=== PATIENT | female | born 1965 | race Asian ===

== ENCOUNTER 2021-04-17 17:23 | Emergency (ER) | payer MEDICARE, MEDICAID ==
[~2021-04-17] VITALS: Ht 152.4 cm; Wt 77.8 kg
--- NOTE | 2021-04-17 17:39 | NUR ---
NO ANSWER FROM LOBBY
--- NOTE | 2021-04-17 18:19 | NUR ---
PT MOVED TO ROOM 40, ONE SUIT CASE, ONE BACK BACK AND ONE PT BELONGINGS BACK LABELLED AND PLACED WITH SITTER. UA COLLECTED.
--- NOTE | 2021-04-17 18:42 | NUR ---
Brief report received from RN rooming pt. writer technical publications at [facility] for 1:1 direct observation continuously for pt safety due to sudhakar SI.
--- NOTE | 2021-04-17 18:55 | NUR ---
Report given to oncoming shift RN and care transferred.
--- NOTE | 2021-04-17 19:14 | NUR ---
FIRST CONTACT WITH PT. HAYES. SHON AT BEDSIDE DRAWING BLOOD
[2021-04-17 19:30] LABS: BASOPHILS % (AUTO) 0 % (0-1); EOSINOPHILS % (AUTO) 0 % (1-7); LYMPHOCYTES % (AUTO) 26 % (22-44); MEAN CORPUSCULAR HEMOGLOBIN 29.2 pg (27.0-34.8); MEAN CORPUSCULAR HGB CONC 33.3 g/dL (32.4-35.8); MEAN PLATELET VOLUME 8.2 fL (7.4-10.4); MONOCYTES % (AUTO) 6 % (2-9); NEUTROPHILS % (AUTO) 68 % (42-75); PLATELET COUNT 369 x10^3/uL (130-400); RED BLOOD COUNT 4.59 x10^6/uL (3.82-5.3)
[2021-04-17 19:42] LABS: ALANINE AMINOTRANSFERASE 45 U/L (12-78); ALBUMIN 3.9 g/dL (3.4-5.0); ANION GAP 7 mmol/L (5-15); CALCIUM 9.3 mg/dL (8.5-10.1); CHLORIDE 109 mmol/L (98-107); CREATININE 0.61 mg/dL (0.55-1.02)
[2021-04-17 19:48] LABS: SALICYLATE LEVEL < 1.7 mg/dL (2.8-20.0)
[2021-04-17 19:52] LABS: ALKALINE PHOSPHATASE 99 U/L (45-117); BILIRUBIN,TOTAL 0.5 mg/dL (0.2-1.0); TOTAL PROTEIN 8.5 g/dL (6.4-8.2)
[2021-04-17 19:55] LABS: AMPHETAMINE SCREEN, URINE Negative (Negative); BARBITURATE SCREEN, URINE Negative (Negative); BENZODIAZEPINE SCREEN, URINE Negative (Negative); CANNABINOID SCREEN, URINE Negative (Negative); COCAINE SCREEN, URINE Negative (Negative); METHADONE SCREEN, URINE Negative (Negative); OPIATE SCREEN, URINE Negative (Negative)
--- NOTE | 2021-04-17 19:57 | NUR ---
PT PACING BACK AND FORTH IN ROOM AND REPORTS ANXIETY. NOTIFIED MD. SEE EMAR FOR NEW ORDERS
[2021-04-17] MEDS ORDERED: HALOPERIDOL 5 MG TABLET ONE (19:59)
[2021-04-17] MEDS ORDERED: HALOPERIDOL 5 MG TABLET PO ONE (20:00)
--- NOTE | 2021-04-17 20:50 | NUR ---
REPORT GIVEN TO HOWARD LIAO. PT AMBULATED TO ROOM 1.
--- NOTE | 2021-04-17 21:08 | NUR ---
FIRST ENCOUNTER WITH PATIENT. PATIENT LYING IN STRETCHER REQUESTING BLANKETS. BLANKETS/ PILLOW PROVIDED. PATIENT DENIES SI/ HI AT THIS TIME STATING SHE JUST NEEDS MEDICATIONS TO MAKE HER FEEL LESS ANXIOUS. 1:[address] ROOM REMAINS SECURE. SI PRECAUTIONS IN PLACE. WILL CONTINUE TO MONITOR.
--- NOTE | 2021-04-17 22:09 | NUR ---
PATIENT RESTING IN STRETCHER WITH EYES CLOSED. NAD. 1:[address] SI PRECAUTIONS REMAIN. WILL CONTINUE TO MONITOR.
--- NOTE | 2021-04-17 23:05 | NUR ---
PATIENT RESTING IN STRETCHER WITH EYES CLOSED. NAD. 1:[address] SI PRECAUTIONS REMAIN. WILL CONTINUE TO MONITOR.
--- NOTE | 2021-04-18 00:19 | NUR ---
PATIENT RESTING IN STRETCHER WITH EYES CLOSED. NAD. 1:[address] SI PRECAUTIONS REMAIN. WILL CONTINUE TO MONITOR.
--- NOTE | 2021-04-18 01:00 | NUR ---
PATIENT RESTING IN BED, NO NOTED NEEDS AT THIS TIME. EVEN-UNLABORED RESPIRATIONS NOTED. SITTER WITHIN VIEW OF PATIENT. WILL CONTINUE TO MONITOR.
--- NOTE | 2021-04-18 01:05 | NUR ---
REPORT GIVEN TO HOWARD HENSON.
--- NOTE | 2021-04-18 02:00 | NUR ---
PATIENT RESTING IN BED, NO NOTED NEEDS AT THIS TIME. EVEN-UNLABORED RESPIRATIONS NOTED. SITTER WITHIN VIEW OF PATIENT. WILL CONTINUE TO MONITOR.
--- NOTE | 2021-04-18 03:00 | NUR ---
PATIENT RESTING IN BED, NO NOTED NEEDS AT THIS TIME. EVEN-UNLABORED RESPIRATIONS NOTED. SITTER WITHIN VIEW OF PATIENT. WILL CONTINUE TO MONITOR.
--- NOTE | 2021-04-18 04:00 | NUR ---
PATIENT RESTING IN BED, NO NOTED NEEDS AT THIS TIME. EVEN-UNLABORED RESPIRATIONS NOTED. SITTER WITHIN VIEW OF PATIENT. WILL CONTINUE TO MONITOR.
--- NOTE | 2021-04-18 04:36 | NUR ---
RAVIN PRINGLE TAKING A LOOK AT PATIENT
--- NOTE | 2021-04-18 04:47 | NUR ---
RAVIN PRINGLE ([place]) ACCEPTING LONG COVID IS NEGATIVE
--- NOTE | 2021-04-18 05:05 | NUR ---
COVID SWAB COLLECTED AND SENT TO LAB. PATIENT UPDATED ON PLAN OF CARE. NO FURTHER NEEDS NOTED AT THIS TIME. SITTER WITHIN VIEW OF PATIENT.
[2021-04-18 05:52] VITALS: BP 116/78
--- NOTE | 2021-04-18 06:11 | NUR ---
PATIENT TAKEN TO U VIA WHEELCHAIR WITH TECH. NO NOTED ACUTE DISTRESS. BELONGINGS TAKEN WITH PATIENT.
[2021-04-18] MEDS ORDERED: ARIP10TA54 PO (08:12)
[2021-04-18] MEDS ORDERED: FLUO10CA15 PO (08:14)
== END 2021-04-18 06:11 ==
LOC: ED 22:50 → INTOOBSV 04-18 00:17 → EDIP 04-18 00:17 → UNDOADMOB 04-18 00:17 → ED 04-18 01:01
DX: R45.851 Suicidal ideations (principal); Z20.822 Contact with and (suspected) exposure to COVID-19; F41.9 Anxiety disorder, unspecified; F41.0 Panic disorder [episodic paroxysmal anxiety]
CPT/HCPCS: 36415; 80053; 80299; 80307; 80320; 80329; 84443; 85025; 87635; 99285; G0480

== ENCOUNTER 2021-04-18 04:57 | Inpatient (IN) | payer MEDICARE, MEDICAID ==
[~2021-04-18] VITALS: Ht 152.4 cm; Wt 76.3 kg
[2021-04-18] MEDS ORDERED: ONDANSETRON ODT 4 MG PO PRN (06:30)
[2021-04-18] MEDS ORDERED: DOCUSATE 100 MG CAPSULE PO PRN (06:30)
[2021-04-18] MEDS ORDERED: BISACODYL 10 MG SUPP PR PRN (06:30)
[2021-04-18] MEDS ORDERED: POLYETHYLENE GLYCOL 17 GM PACKET PO PRN (06:30)
[2021-04-18 06:41] VITALS: BP 107/72
[2021-04-18 08:00] VITALS: BP 103/73
[2021-04-18] MEDS ORDERED: ARIP10TA54 PO (08:12)
[2021-04-18] MEDS ORDERED: FLUO10CA15 PO (08:14)
[2021-04-18] MEDS ORDERED: HYDROXYZINE PAMOATE 50MG CAP PO PRN (09:00)
[2021-04-18] MEDS: FLUOXETINE HCL 20 MG CAPSULE PO SCH (14:30)
[2021-04-18] MEDS ORDERED: CARIPRAZINE 3 MG CAP PO ONE ×2 (16:00)
[2021-04-18] MEDS ORDERED: LORazepam 1MG TABLET ONE (18:38)
[2021-04-18] MEDS: LORazepam 1MG TABLET PO PRN (18:40)
[2021-04-18 19:33] VITALS: BP 96/65
[2021-04-18] MEDS ORDERED: ARIPIPRAZOLE 10 MG TABLET PO SCH (21:00)
[2021-04-19 06:41] LABS: CHOL/HDL RATIO 5.1; FREE T4 (FREE THYROXINE) 0.96 ng/dL (0.76-1.46); LDL/HDL RATIO 3.1 (0.5-3.0)
[2021-04-19 07:57] VITALS: BP 108/60
[2021-04-19] MEDS: LORazepam 1MG TABLET PO PRN ×2 (08:44→17:37)
[2021-04-19] MEDS: CARIPRAZINE 3 MG CAP PO SCH (08:44)
[2021-04-19] MEDS: FLUOXETINE HCL 20 MG CAPSULE PO SCH (08:46)
[2021-04-19] MEDS: SODIUM CHLORIDE NASAL SPRAY 45ML BOTTLE NAS PRN (14:10)
[2021-04-19 14:38] LABS: MICROSCOPIC INDICATED
[2021-04-19] MEDS: ESCITALOPRAM 10MG TABLET PO SCH (16:42)
[2021-04-19 19:30] VITALS: BP 105/66
[2021-04-19] MEDS: TRIAMCINOLONE CRM 0.5%, 15GM TP SCH (20:24)
[2021-04-20 07:25] VITALS: BP 103/71
[2021-04-20] MEDS: ESCITALOPRAM 10MG TABLET PO SCH (09:05)
[2021-04-20] MEDS: CARIPRAZINE 3 MG CAP PO SCH (09:05)
[2021-04-20] MEDS: SODIUM CHLORIDE NASAL SPRAY 45ML BOTTLE NAS PRN (09:06)
[2021-04-20] MEDS: TRIAMCINOLONE CRM 0.5%, 15GM TP SCH ×2 (09:21→20:30)
[2021-04-20] MEDS: LORazepam 1MG TABLET PO PRN ×2 (11:35→20:30)
[2021-04-20] MEDS: ACETAMINOPHEN 325 MG TABLET PO PRN (18:35)
[2021-04-20] MEDS: ARTIFICIAL TEARS 15 DROP/ML BOTTLE EACHEYE PRN (18:44)
[2021-04-20 19:30] VITALS: BP 107/72
[2021-04-21 07:29] VITALS: BP 105/71
[2021-04-21] MEDS: ARTIFICIAL TEARS 15 DROP/ML BOTTLE EACHEYE PRN ×2 (08:29→16:37)
[2021-04-21] MEDS: ESCITALOPRAM 10MG TABLET PO SCH (08:30)
[2021-04-21] MEDS: CARIPRAZINE 3 MG CAP PO SCH (08:30)
[2021-04-21] MEDS: TRIAMCINOLONE CRM 0.5%, 15GM TP SCH ×2 (08:53→21:00)
[2021-04-21] MEDS: HYDROXYZINE PAMOATE 50MG CAP PO PRN (16:19)
[2021-04-21 19:24] VITALS: BP 115/79
[2021-04-22 07:13] VITALS: BP 105/72
[2021-04-22] MEDS: ESCITALOPRAM 10MG TABLET PO SCH (07:53)
[2021-04-22] MEDS: HYDROXYZINE PAMOATE 50MG CAP PO PRN (07:53)
[2021-04-22] MEDS: CARIPRAZINE 3 MG CAP PO SCH (07:53)
[2021-04-22] MEDS: ACETAMINOPHEN 325 MG TABLET PO PRN (07:53)
[2021-04-22] MEDS: TRIAMCINOLONE CRM 0.5%, 15GM TP SCH ×2 (07:54→20:25)
[2021-04-22] MEDS: ARTIFICIAL TEARS 15 DROP/ML BOTTLE EACHEYE PRN ×2 (12:16→17:51)
[2021-04-22 19:35] VITALS: BP 105/72
[2021-04-22] MEDS: BENZTROPINE 1 MG TABLET PO SCH (20:25)
[2021-04-23 07:29] VITALS: BP 109/72
[2021-04-23] MEDS: ESCITALOPRAM 10MG TABLET PO SCH (07:49)
[2021-04-23] MEDS: TRIAMCINOLONE CRM 0.5%, 15GM TP SCH ×2 (07:49→21:00)
[2021-04-23] MEDS: ARTIFICIAL TEARS 15 DROP/ML BOTTLE EACHEYE PRN ×2 (07:49→17:15)
[2021-04-23] MEDS: CARIPRAZINE 3 MG CAP PO SCH (07:49)
[2021-04-23] MEDS: ACETAMINOPHEN 325 MG TABLET PO PRN (09:16)
[2021-04-23] MEDS: HYDROXYZINE PAMOATE 50MG CAP PO PRN (09:16)
[2021-04-23 19:10] VITALS: BP 122/77
[2021-04-23] MEDS: BENZTROPINE 1 MG TABLET PO SCH (20:48)
[2021-04-24 05:43] VITALS: BP 109/70
[2021-04-24] MEDS: ESCITALOPRAM 10MG TABLET PO SCH (08:42)
[2021-04-24] MEDS: CARIPRAZINE 3 MG CAP PO SCH (08:43)
[2021-04-24] MEDS: ARTIFICIAL TEARS 15 DROP/ML BOTTLE EACHEYE PRN ×2 (08:43→16:23)
[2021-04-24] MEDS: TRIAMCINOLONE CRM 0.5%, 15GM TP SCH ×2 (08:44→20:45)
[2021-04-24] MEDS: ACETAMINOPHEN 325 MG TABLET PO PRN (09:28)
[2021-04-24] MEDS: LORazepam 1MG TABLET PO PRN (09:39)
[2021-04-24 19:35] VITALS: BP 104/70
[2021-04-24] MEDS: BENZTROPINE 1 MG TABLET PO SCH (20:44)
[2021-04-25 07:36] VITALS: BP 102/68
[2021-04-25] MEDS: ESCITALOPRAM 10MG TABLET PO SCH (07:57)
[2021-04-25] MEDS: CARIPRAZINE 3 MG CAP PO SCH (07:58)
[2021-04-25] MEDS: TRIAMCINOLONE CRM 0.5%, 15GM TP SCH ×2 (07:58→20:44)
[2021-04-25] MEDS: ARTIFICIAL TEARS 15 DROP/ML BOTTLE EACHEYE PRN (09:45)
[2021-04-25] MEDS: ACETAMINOPHEN 325 MG TABLET PO PRN (09:45)
[2021-04-25] MEDS ORDERED: CARI3CAP PO (18:46)
[2021-04-25] MEDS ORDERED: BENZ1TAB61 PO (18:46)
[2021-04-25] MEDS ORDERED: ESCI10TA97 PO (18:46)
[2021-04-25] MEDS ORDERED: HYDR-826 PO (18:46)
[2021-04-25 19:54] VITALS: BP 121/77
[2021-04-25] MEDS: BENZTROPINE 1 MG TABLET PO SCH (20:42)
[2021-04-26 07:32] VITALS: BP 97/60
[2021-04-26] MEDS: CARIPRAZINE 3 MG CAP PO SCH (09:00)
[2021-04-26] MEDS: TRIAMCINOLONE CRM 0.5%, 15GM TP SCH (09:00)
[2021-04-26] MEDS: SODIUM CHLORIDE NASAL SPRAY 45ML BOTTLE NAS PRN (09:22)
[2021-04-26] MEDS: ARTIFICIAL TEARS 15 DROP/ML BOTTLE EACHEYE PRN (09:22)
[2021-04-26] MEDS: ACETAMINOPHEN 325 MG TABLET PO PRN (09:23)
[2021-04-26] MEDS: ESCITALOPRAM 10MG TABLET PO SCH (09:23)
== END 2021-04-26 09:52 | disposition home or self-care (01) | DRG 885 ==
LOC: 3E 06:10
PROVIDERS: ADMIT Psychiatry & Neurology Psychosomatic Medicine; ATTEND Psychiatry & Neurology Psychosomatic Medicine
DX: F20.0 Paranoid schizophrenia (principal); R45.851 Suicidal ideations; F41.1 Generalized anxiety disorder; F41.0 Panic disorder [episodic paroxysmal anxiety]; F32.9 Major depressive disorder, single episode, unspecified; Z59.0 Homelessness; Z79.899 Other long term (current) drug therapy
CPT/HCPCS: 36415; 71045; 80053; 80061; 80299; 80307; 80320; 80329; 81001; 82607; 84439; 84443; 85025; 87635; 99285; G0480; Q0177

== ENCOUNTER 2021-05-07 21:42 | Emergency (ER) | payer MEDICARE, MEDICAID ==
[~2021-05-07] VITALS: Ht 152.4 cm; Wt 65.0 kg
[~2021-05-07 21:42] MED LIST: ARIP10TA54 PO; BENZ1TAB61 PO; CARI3CAP PO; ESCI10TA97 PO; FLUO10CA15 PO; HYDR-826 PO
[2021-05-07 23:06] LABS: BASOPHILS % (AUTO) 0 % (0-1); EOSINOPHILS % (AUTO) 1 % (1-7); LYMPHOCYTES % (AUTO) 16 % (22-44); MEAN CORPUSCULAR HEMOGLOBIN 29.8 pg (27.0-34.8); MEAN CORPUSCULAR HGB CONC 33.6 g/dL (32.4-35.8); MEAN PLATELET VOLUME 8.7 fL (7.4-10.4); MONOCYTES % (AUTO) 4 % (2-9); NEUTROPHILS % (AUTO) 79 % (42-75); PLATELET COUNT 274 x10^3/uL (130-400); RED BLOOD COUNT 4.16 x10^6/uL (3.82-5.3); RED CELL DISTRIBUTION WIDTH 12.9 % (9.6-15.2)
[2021-05-07 23:11] LABS: ALBUMIN 3.3 g/dL (3.4-5.0); ANION GAP 6 mmol/L (5-15); CALCIUM 8.5 mg/dL (8.5-10.1); CHLORIDE 108 mmol/L (98-107)
[2021-05-07 23:15] LABS: ALANINE AMINOTRANSFERASE 33 U/L (12-78); ALKALINE PHOSPHATASE 98 U/L (45-117); BILIRUBIN,TOTAL 0.3 mg/dL (0.2-1.0); CREATININE 0.57 mg/dL (0.55-1.02); TOTAL PROTEIN 7.4 g/dL (6.4-8.2)
--- NOTE | 2021-05-07 23:54 | NUR ---
HEAT TREAT WORKER RN: PT UNABLE TO SIT UP WITHOUT ASSISTANCE. PT CAN NOT AMBULATE AT THIS TIME. Addendum: 05/08/21 at 0011 by WHIT CHARTED ON WRONG PATIENT.
[2021-05-08 00:04] VITALS: BP 159/97
--- NOTE | 2021-05-08 00:06 | NUR ---
PT SEEN BY AND EVALUATED. PT NOW HAS DC INSTRUCTIONS, AND GIVEN F/U AND D/C INSTRUCTIONS GIVEN TO PT AND SHE V/U. PTS PIV D/C'D AND CATH TIP INTACT. PT AMBULATED TO DISCHARGE DESK.
--- NOTE | 2021-05-08 00:10 | NUR ---
ATTEMPTED TO BREATHALIZE PATIENT. PATIENT WOULD NOT FOLLOW COMMANDS TO EFFECTIVELY PERFORM TASK. ATTEMPTED SERVERAL TIMES WITHOUT SUCCESS Addendum: 05/08/21 at 0011 by WHIT CHART ON WRONG PATIENT
== END 2021-05-08 00:12 | disposition home or self-care (01) ==
LOC: ED 21:52
DX: R10.84 Generalized abdominal pain (principal)
CPT/HCPCS: 36415; 71045; 80053; 83690; 85025; 99284

== ENCOUNTER 2021-05-10 22:09 | Emergency (ER) | payer MEDICAID, MEDICARE ==
[~2021-05-10] VITALS: Ht 152.4 cm; Wt 85.7 kg
[2021-05-10 22:11] VITALS: BP 120/84
--- NOTE | 2021-05-10 22:17 | NUR ---
[facility] on [facility] pt lives. pt reported SI with hx of SA. pt arrived to ER [facility] and states that her meds are not working. pt changed into gown, belongings 08/20 bags placed in locker, med rec and belongings list completed, provided warm blankets and socks for comfort. nad, ambulatory with a smooth and steady gait to restroom for uds. wctm.
[2021-05-10 22:55] LABS: AMPHETAMINE SCREEN, URINE Negative (Negative); BARBITURATE SCREEN, URINE Negative (Negative); BENZODIAZEPINE SCREEN, URINE Negative (Negative); CANNABINOID SCREEN, URINE Negative (Negative); COCAINE SCREEN, URINE Negative (Negative); METHADONE SCREEN, URINE Negative (Negative); OPIATE SCREEN, URINE Negative (Negative)
--- NOTE | 2021-05-10 23:10 | NUR ---
Patient is resting comfortably in bed. Bed in lowest, rails engaged, call light on lap. ROOM SECURED, Q15MIN CHECKS IN PLACE. EYES CLOSED, EVEN AND UNLABORED RESPIRATIONS NOTED. WCTM.
[2021-05-10 23:27] LABS: ALANINE AMINOTRANSFERASE 36 U/L (12-78); ALBUMIN 3.3 g/dL (3.4-5.0); ANION GAP 7 mmol/L (5-15); CALCIUM 8.4 mg/dL (8.5-10.1); CHLORIDE 107 mmol/L (98-107); CREATININE 0.72 mg/dL (0.55-1.02)
[2021-05-10 23:29] LABS: ALKALINE PHOSPHATASE 99 U/L (45-117); BASOPHILS % (AUTO) 0 % (0-1); BILIRUBIN,TOTAL 0.4 mg/dL (0.2-1.0); EOSINOPHILS % (AUTO) 2 % (1-7); LYMPHOCYTES % (AUTO) 29 % (22-44); MEAN CORPUSCULAR HEMOGLOBIN 29.6 pg (27.0-34.8); MEAN CORPUSCULAR HGB CONC 33.8 g/dL (32.4-35.8); MEAN PLATELET VOLUME 8.7 fL (7.4-10.4); MONOCYTES % (AUTO) 5 % (2-9); NEUTROPHILS % (AUTO) 64 % (42-75); PLATELET COUNT 287 x10^3/uL (130-400); RED BLOOD COUNT 4.18 x10^6/uL (3.82-5.3); RED CELL DISTRIBUTION WIDTH 13.1 % (9.6-15.2); TOTAL PROTEIN 7.5 g/dL (6.4-8.2)
[2021-05-10 23:32] LABS: SALICYLATE LEVEL < 1.7 mg/dL (2.8-20.0)
--- NOTE | 2021-05-11 01:00 | NUR ---
Patient is resting comfortably in bed. Bed in lowest, rails engaged, call light on lap. room secured, sitter in line of sight, eyes closed, even and unlabored respirations, WCTM.
--- NOTE | 2021-05-11 01:56 | NUR ---
RECIEVED REPORT FROM CHYNA LAWRENCE. TRANSFER OF CARE
--- NOTE | 2021-05-11 02:07 | NUR ---
report to Steven saavedra, pt care transferred at this time. pt nad, resting on gurney, no change in condition, room secured.
--- NOTE | 2021-05-11 05:00 | NUR ---
Patient is resting comfortably in bed. Bed in lowest, rails engaged, call light on lap. Vital Signs within normal limits. WCTM. SAFETY PRECAUTIONS IN PLACE GARAGE DOORS SECURED, SITTER OUTSIDE ROOM FOR SAFETY MONITORING. PERSONAL BELONGINGS SECURED IN LOCKERS. BREATHING EVEN AND UNLABORED. NADN. WCTM awaiting for hospital bed
--- NOTE | 2021-05-11 05:22 | NUR ---
pt currently using [facility] for psych eval. pt moved into hospital bed , transferred well. nadn same safety precautions in place
[2021-05-11] MEDS ORDERED: LORazepam 1MG TABLET PO ONE (05:30)
[2021-05-11] MEDS ORDERED: LORazepam 0.5MG TABLET ONE (05:43)
--- NOTE | 2021-05-11 06:32 | NUR ---
Patient/Caregiver given discharge instructions and they have confirmed that they understand the instructions. Patient ambulatory with steady gait. NAD, all questions answered appropriately, denies additional needs at this time. No personal belongings left in room after discharge. pt given taxi vouche for safe dc
== END 2021-05-11 06:34 | disposition home or self-care (01) ==
LOC: ED 22:15
DX: R45.851 Suicidal ideations (principal); F33.9 Major depressive disorder, recurrent, unspecified; F20.9 Schizophrenia, unspecified; F41.1 Generalized anxiety disorder
CPT/HCPCS: 36415; 80053; 80299; 80307; 80320; 80329; 85025; 99285; G0480